=== PATIENT | female | born 1965 | race Caucasian/White ===

== ENCOUNTER 2020-11-30 12:59 | Outpatient (CLI) | payer OTHER, SELFPAY ==
--- NOTE | 2020-11-30 13:22 | XR_ITS ---
WS: [id number] CHEST 2 VIEWS HISTORY: MILD PERSISTENT ASTHMA, UNCOMPLICATED, OTHER FORMS OF ANGINA COMPARISON: None available. Lungs: Mild hyperexpansion with flattened diaphragms. No pneumonia. Normal vasculature. No pleural ef fusion. Cardiac size: Normal. Mediastinum/Aorta: Normal mediastinum. Bones: Normal. Prior anterior cervical fusion. XR/XR chest 2V* [id number] IMPRESSION: Mild hyperexpansion. No pneumonia.
== END 2020-11-30 13:00 | disposition home or self-care (01) ==
LOC: RADWPI 13:06
PROVIDERS: PCP Family Medicine; Visit Provider Family Medicine
DX: J45.30 Mild persistent asthma, uncomplicated (principal); I20.8 Other forms of angina pectoris
CPT/HCPCS: 71046

== ENCOUNTER 2021-03-12 15:33 | Outpatient (CLI) | payer OTHER, SELFPAY ==
--- NOTE | 2021-03-12 15:51 | XR_ITS ---
WS: [id number] Exam: XR lumbar spine 6V w f/e [id number] Date/Time of Exam: 03/12/2021 3:59 PM Reason For Exam: LOW BACK PAIN No fracture or dislocation. Disc spaces are relatively well maintained. No sign of subluxation or ins tability on flexion or extension views. 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 Osteopenia. XR/XR lumbar spine 6V w f/e [id number] IMPRESSION: 1. No evidence of fracture, subluxation or instability. 2. Facet DJD at L5-S1. Osteopenia.
== END 2021-03-12 15:34 | disposition home or self-care (01) ==
LOC: RAD 15:37
PROVIDERS: PCP Family Medicine; Visit Provider Nurse Practitioner Family
DX: M54.5 Low back pain (principal); M47.817 Spondylosis without myelopathy or radiculopathy, lumbosacral region; M85.88 Other specified disorders of bone density and structure, other site
CPT/HCPCS: 72114

== ENCOUNTER 2022-02-14 15:52 | Outpatient (CLI) | payer BC, SELFPAY ==
--- NOTE | 2022-02-14 16:12 | XRR_ITS ---
PROCEDURE INFORMATION: Exam: XR Right Knee Exam date and time: 02/14/2022 4:15 PM Age: 56 years old Clinical indication: Pain; Knee; Right; Additional info: Pain in right knee TECHNIQUE: Imaging protocol: XR Right knee. Views: 3 views. COMPARISON: No relevant prior studies available. FINDINGS: Bones/joints: Normal. Soft tissues: Normal. XR/XR knee RT 3V* [id number] IMPRESSION: No acute findings.
== END 2022-02-14 15:53 | disposition home or self-care (01) ==
LOC: RAD 15:58
PROVIDERS: PCP Family Medicine; Visit Provider Family Medicine
DX: M25.561 Pain in right knee (principal)
CPT/HCPCS: 73562

== ENCOUNTER → 2025-10-06 10:53 | Outpatient (BNVA) | payer BC, SELFPAY | PROVIDERS: PCP Family Medicine; Visit Provider Family Medicine | DX: I10 Essential (primary) hypertension (principal); I25.118 Atherosclerotic heart disease of native coronary artery with other forms of angina pectoris; E78.00 Pure hypercholesterolemia, unspecified; E11.65 Type 2 diabetes mellitus with hyperglycemia; E55.9 Vitamin D deficiency, unspecified; K21.9 Gastro-esophageal reflux disease without esophagitis; R60.0 Localized edema | CPT/HCPCS: 80053; 80061; 82043; 82306; 82310; 82607; 83036; 83970; 84439; 84443; 85025 ==